=== PATIENT | female | born 1975 | race Hispanic/Latino ===

== ENCOUNTER 2017-03-19 15:14 | Emergency (ER) | payer OTHER ==
[2017-03-19 16:20] LABS: APPEARANCE,URINE SL CLOUDY (CLEAR); BILIRUBIN,URINE NEGATIVE (NEGATIVE); COLOR,URINE YELLOW (YELLOW); GLUCOSE, URINE (UA) NEGATIVE (NEGATIVE); KETONES,URINE NEGATIVE (NEGATIVE); LEUKOCYTE ESTERASE ,URINE NEGATIVE (NEGATIVE); NITRATE,URINE NEGATIVE (NEGATIVE); OCCULT BLOOD,URINE SMALL (NEGATIVE); PROTEIN,URINE 100 (NEGATIVE); UROBILINOGEN,URINE 0.2 mg/dL (0.2-1.0)
[2017-03-19 16:52] LABS: BACTERIA,URINE Few /HPF (None Seen); MUCUS,URINE Few LPF (None Seen); RBC,URINE 0-1 /HPF (0-1); SQUAMOUS EPITHELIAL CELL,UR Few /LPF (0-2)
== END 2017-03-19 16:56 | disposition home or self-care (01) ==
LOC: EDH 15:14
DX: J09.X2 Influenza due to identified novel influenza A virus with other respiratory manifestations (principal)
CPT/HCPCS: 81001; 87804

== ENCOUNTER 2024-04-11 14:54 | Emergency (ER) | payer OTHER ==
--- NOTE | 2024-04-11 15:36 | NUR ---
CALLED PT 4 TIMES FOR LAST 20 MINUTES NO ANSWER
== END 2024-04-11 15:38 | disposition left against medical advice (07) ==
LOC: EDH 14:54
DX: R00.2 Palpitations (principal); R53.1 Weakness; Z53.21 Procedure and treatment not carried out due to patient leaving prior to being seen by health care provider